=== PATIENT | male | born 1945 | race Caucasian/White ===

== ENCOUNTER 2016-08-11 08:20 | Day surgery (SDC) | payer MEDICARE ==
--- NOTE | ~2016-08-11 | EGD ---
EGD REPORT [facility] [address] [address] NAME: GILMER JAIME : [birth year] STATUS : REG [facility]#: [id number] AGE: 70 ADM/REG DATE : 08/11/16 MR#: [id number] REPORT SERV DATE: 08/11/16 DICTATED BY: COLT CHRISTOPHER DATE: 08/11/16 REPORT STATUS : Draft TRANSCRIBED BY: [facility] DATE: 08/11/16 Endoscopy Center Patient Name: Gilmer Jaime Date of : 1945 Attending MD: COLT CHRISTOPHER, Procedure Date No Time: 08/11/2016 Procedure: Upper EUS Indications: Common bile duct dilation (acquired) seen on CT scan, Dilated pancreatic duct on CT scan Referring MD: Ortiz BRICENO Medicines: Monitored Anesthesia Care Complications: No immediate complications. Estimated blood loss: None. Procedure: Pre-Anesthesia Assessment: - ASA Grade Assessment: III - A patient with severe systemic disease. After obtaining informed consent, the endoscope was passed under direct vision. Throughout the procedure, the patient's blood pressure, pulse, and oxygen saturations were monitored continuously. The Endoscope was introduced through the mouth, and advanced to the second part of duodenum. The GIF [id number] was introduced through the mouth, and advanced to the second part of duodenum. Findings: Endoscopic Finding : The examined esophagus was endoscopically normal. Diffuse moderate inflammation characterized by congestion (edema), erythema and friability was found in the entire examined stomach. Biopsies were taken with a cold forceps for histology. Verification of patient identification for the specimen was done. Estimated blood loss was minimal. Evidence of a gastroenterostomy (gastrojejunomostomy) was found in the gastric body (posterior wall). The anastomosis was characterized by healthy appearing mucosa. The exam of the stomach was otherwise normal. The pylorus was patent. The examined duodenum was endoscopically normal. The examined jejunum was normal as examined throught G-J. Both limbs examined. . Endosonographic Finding : Many stones were visualized endosonographically in the common bile duct. The stones measured up to 4 mm in greatest dimension. They were hyperechoic and characterized by shadowing. There was dilation in the common bile duct which measured up to 14 mm. The pancreatic duct had a dilated endosonographic appearance in the EGD REPORT [place] [id number] [facility] [place]. [address] NAME: GILMER JAIME : [birth year] STATUS : [facility] [place]#: [id number] AGE: 70 ADM/REG DATE : 08/11/16 MR#: [id number] REPORT SERV DATE: 08/11/16 DICTATED BY: COLT CHRISTOPHER DATE: 08/11/16 REPORT STATUS : Draft TRANSCRIBED BY: [employer] DATE: 08/11/16 entire pancreas. The pancreatic duct measured up to 7 mm in diameter. Endosonographic imaging of the pancreas showed no chronic pancreatitis, no mass, no pancreas divisum and no parenchymal abnormalities. No lymphadenopathy seen. There was no sign of significant endosonographic abnormality in the examined duodenum. Endosonographic images of the stomach were unremarkable. There was no sign of significant endosonographic abnormality in the esophagus. Impression: - Normal esophagus. - Gastritis. Biopsied. - A gastroenterostomy was found, anastomosis characterized by healthy appearing mucosa. - Normal examined duodenum. - Normal examined jejunum. - Many stones were visualized endosonographically in the common bile duct. - There was dilation in the common bile duct which measured up to 14 mm. - The pancreatic duct had a dilated endosonographic appearance in the entire pancreas. The pancreatic duct measured up to 7 mm in diameter. - There was no sign of significant pathology in the examined duodenum. - Endosonographic images of the stomach were unremarkable. - There was no sign of significant pathology in the esophagus. Recommendation: - Return to previous diet. - Continue present medications. - Await path results. - Perform an ERCP at appointment to be scheduled after discussion with patient to remove stones. PD sphincterotomy could also be considered at that time or a later date. . Procedure Code(s): --- Professional --- 22804, Esophagogastroduodenoscopy, flexible, transoral; with endoscopic ultrasound examination, including the esophagus, stomach, and either the duodenum or a surgically altered stomach where the jejunum is examined distal to the anastomosis Diagnosis Code(s): --- Professional --- K80.50, Calculus of bile duct without cholangitis or EGD REPORT [facility] [address] [address] NAME: GILMER JAIME : [birth year] STATUS : [facility] [place]#: [id number] AGE: 70 ADM/REG DATE : 08/11/16 MR#: [id number] REPORT SERV DATE: 08/11/16 DICTATED BY: COLT CHRISTOPHER DATE: 08/11/16 REPORT STATUS : Draft TRANSCRIBED BY: [employer] DATE: 08/11/16 cholecystitis without obstruction K29.70, Gastritis, unspecified, without bleeding Z98.0, Intestinal bypass and anastomosis status K83.8, Other specified diseases of biliary tract R93.3, Abnormal findings on diagnostic imaging of other parts of digestive tract K86.8, Other specified diseases of pancreas CPT copyright 2013 [employer] [place] [employer]. All rights reserved. The codes documented in this report are preliminary and upon heavy equipment sales associate review may be revised to meet current compliance requirements. COLT CHRISTOPHER, 08/11/2016 9:53 AM Number of Addenda: 0 Note Initiated On: 08/11/2016 9:20 AM Scope Withdrawal Time 0 hours 0 minutes 0 seconds [id number] [facility] [address] [id number]
[~2016-08-11 08:20] MED LIST: ASAB PO; BENTYL20 PO; IMDUR30 PO; LIPITOR20 PO; MSCONTIN PO; PERCOCET 10/3251 TAB PO; PLAVIX PO; PRILO PO; ZANAFLEX 4 MG TA4 MG PO
== END 2016-08-11 23:59 | disposition home or self-care (01) ==
LOC: DMU 08:20
PROVIDERS: Internal Medicine Gastroenterology
PROC: 0DB68ZX Excision of Stomach, Via Natural or Artificial Opening Endoscopic, Diagnostic (ICD-10-PCS; 2016-08-11)
PROC: 0DJ08ZZ Inspection of Upper Intestinal Tract, Via Natural or Artificial Opening Endoscopic (ICD-10-PCS; principal; 2016-08-11 10:00)
DX: K29.50 Unspecified chronic gastritis without bleeding (principal); K83.8 Other specified diseases of biliary tract; K86.89 Other specified diseases of pancreas; K80.50 Calculus of bile duct without cholangitis or cholecystitis without obstruction; I25.10 Atherosclerotic heart disease of native coronary artery without angina pectoris; K21.9 Gastro-esophageal reflux disease without esophagitis; E78.5 Hyperlipidemia, unspecified; Z98.0 Intestinal bypass and anastomosis status; Z79.82 Long term (current) use of aspirin; Z79.02 Long term (current) use of antithrombotics/antiplatelets; Z79.891 Long term (current) use of opiate analgesic; Z79.899 Other long term (current) drug therapy
CPT/HCPCS: 88305

== ENCOUNTER 2016-08-28 09:27 | Day surgery (SDC) | payer MEDICARE ==
--- NOTE | ~2016-08-28 | EGD ---
EGD REPORT [facility] [address] [address] NAME: GILMER JAIME : 43 STATUS : REG [facility]#: [id number] AGE: 70 ADM/REG DATE : 08/28/16 MR#: [id number] REPORT SERV DATE: 08/28/16 DICTATED BY: COLT CHRISTOPHER DATE: 08/28/16 REPORT STATUS : Draft [facility]: [facility] DATE: 08/28/16 Endoscopy Center Patient Name: Gilmer Jaime Date of : 1945 Attending MD: COLT CHRISTOPHER, Procedure Date No Time: 08/28/2016 Procedure: ERCP Indications: Bile duct stone(s) Referring MD: Ortiz BRICENO Medicines: General Anesthesia Complications: No immediate complications. Estimated blood loss: None Procedure: Pre-Anesthesia Assessment: - ASA Grade Assessment: III - A patient with severe systemic disease. After obtaining informed consent, the scope was passed under direct vision. Throughout the procedure, the patient's blood pressure, pulse, and oxygen saturations were monitored continuously. The Duodenoscope was introduced through the mouth, and advanced to the duodenum and used to inject contrast into the bile duct. The ERCP was accomplished without difficulty. The patient tolerated the procedure well. Findings: The major papilla was normal. The bile duct was deeply cannulated with the short-nosed traction sphincterotome. Contrast was injected. I personally interpreted the bile duct and pancreatic duct images. Ductal flow of contrast was adequate. The main bile duct was diffusely dilated. The largest diameter was 12 mm. Biliary sphincterotomy was made with a traction (standard) sphincterotome using ERBE electrocautery. Because of his prior perforation the sphincterotomy was somewhat limited. There was no post-sphincterotomy bleeding. The duct was swept and there was some resistance at the ampulla and no stones were extracted. The lower third of the main bile duct was successfully dilated with a 10 mm balloon dilator. The biliary tree was swept with a 9 mm balloon and 12 mm balloon starting at the upper third of the main bile duct. Three stones were removed. No stones remained. Impression: - The major papilla appeared normal. - The entire main bile duct was dilated. - Choledocholithiasis was found. Complete removal was accomplished by biliary sphincterotomy and balloon extraction. Recommendation: - Return to previous diet. EGD REPORT [address] [address] NAME: GILMER JAIME : [birth year] STATUS : REG [facility]#: [id number] AGE: 70 ADM/REG DATE : 08/28/16 MR#: [id number] REPORT SERV DATE: 08/28/16 DICTATED BY: COLT CHRISTOPHER DATE: 08/28/16 REPORT STATUS : Draft TRANSCRIBED BY: [employer] DATE: 08/28/16 - Continue present medications. - Return to referring physician. 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 All rights reserved. The codes documented in this report are preliminary and upon butt maker review may be revised to meet current compliance requirements. COLT CHRISTOPHER, 08/28/2016 11:39 AM Number of Addenda: 0 Note Initiated On: 08/28/2016 10:57 AM Scope Withdrawal Time 0 hours 0 minutes 0 seconds [address] [place] [address]
[2016-08-28 10:17] LABS: BUN (BLOOD UREA NITROGEN) 19 MG/DL (6-23); CALCIUM, SERUM 8.3 MG/DL (8.5-10.4); CHLORIDE, SERUM 108 MMOL/L (96-112); CO2 (CARBON DIOXIDE) 29 MMOL/L (24-34); CREATININE 0.82 MG/DL (0.70-1.30); GFR AFRICAN AMERICAN 103 ML/MIN (>=60); GFR NON AFRICAN AMERICAN 89 ML/MIN (>=60); GLUCOSE, SERUM 99 MG/DL (60-99); POTASSIUM, SERUM 4.3 MMOL/L (3.5-5.3); SODIUM, SERUM 144 MMOL/L (135-148)
== END 2016-08-28 18:16 | disposition home or self-care (01) ==
LOC: DMU 09:27
PROVIDERS: Anesthesiology; Internal Medicine Gastroenterology
PROC: 0FC98ZZ Extirpation of Matter from Common Bile Duct, Via Natural or Artificial Opening Endoscopic (ICD-10-PCS; principal; 2016-08-28 11:00)
PROC: 0F798ZZ Dilation of Common Bile Duct, Via Natural or Artificial Opening Endoscopic (ICD-10-PCS; 2016-08-28 11:00)
DX: K80.50 Calculus of bile duct without cholangitis or cholecystitis without obstruction (principal); Q44.0 Agenesis, aplasia and hypoplasia of gallbladder; Q44.1 Other congenital malformations of gallbladder; Q44.4 Choledochal cyst; Q44.5 Other congenital malformations of bile ducts; Q44.7 Other congenital malformations of liver; E78.00 Pure hypercholesterolemia, unspecified; K21.9 Gastro-esophageal reflux disease without esophagitis; F41.9 Anxiety disorder, unspecified; F32.9 Major depressive disorder, single episode, unspecified; Z79.899 Other long term (current) drug therapy; Z79.82 Long term (current) use of aspirin; Z79.891 Long term (current) use of opiate analgesic; Z90.49 Acquired absence of other specified parts of digestive tract; Z87.442 Personal history of urinary calculi; Z98.890 Other specified postprocedural states
CPT/HCPCS: 74330; 80048; 93005; C1769; J0330; J1170; J2250; J2270; J2405; J3010; Q9967